=== PATIENT | female | born 1945 | race Caucasian/White ===

== ENCOUNTER → 2017-02-04 | Outpatient (CLI) | payer MEDICARE ==
[~2017-02-04] MED LIST: ALEVE ARTHRITI220 MG PO; ALPRAZOLAM0.5 M3 PO; ASPIRIN CHILDRE81 M1 PO; DILTIAZEM ER 1120 MG PO; DILTIAZEM ER 2240 MG PO; DIOVAN320 MG PO; ELIQUIS5 MG PO; FUROSEMIDE 20MG20 MG PO; ICAPS; ICAPS AREDS1 TAB PO; LOPRESSOR 25MG.25 MG PO; METOPROLOL25 MG PO; VALSARTAN AND H1 TA1; VALSARTAN AND H1 TA1 PO; VALSARTAN160 MG PO
[2017-02-04 13:25] LABS: BUN 19 mg/dL (7-18)
[2017-02-04 13:26] LABS: GFR (ESTIMATED) 54 ML/MIN (59-)
--- NOTE | 2017-02-04 14:52 | RADIOLOGY REPORT PS360 ---
CHEST(2 VIEWS-NOT PORTABLE) HISTORY: Atrial fibrillation AFIB ORDERING PHYSICIAN: RILEY Finch PATIENT AGE: 71 years COMPARISON: None available FINDINGS: The cardiomediastinal silhouette and pulmonary vascularity are within normal limits. Lungs are clear of acute infiltrate. A small nodular opacity is present in the right midlung at 4 mm probably due to granuloma. There is minimal blunting of the left CP angle.. Mild degenerative changes thoracic spine.. There is some cortical irregularity humeral heads with some increased density which could be related to developing avascular necrosis. Dedicated shoulder films may be of further value. IMPRESSION: 1. Minimal blunting left CP angle suggesting small left effusion otherwise negative chest. 2. Possible avascular necrosis of the humeral heads
== END ==
LOC: LAB 11:50
PROVIDERS: Physician Assistant
DX: I48.0 Paroxysmal atrial fibrillation (principal)